=== PATIENT | male | born 2000 | race Two or more races ===

== ENCOUNTER 2022-04-18 06:03 | Emergency (ER) | payer OTHER ==
[~2022-04-18] VITALS: Ht 172.7 cm; Wt 72.6 kg
--- NOTE | 2022-04-18 08:38 | NUR ---
Patient discharged to home in stable condition. Written and verbal after care instructions given to [employer] -verbalizes understanding of instruction.
[2022-04-18 08:39] VITALS: BP 135/80
== END 2022-04-18 09:01 | disposition home or self-care (01) ==
LOC: ER 06:18
DX: S00.83XA Contusion of other part of head, initial encounter (principal); Z60.2 Problems related to living alone; Y08.89XA Assault by other specified means, initial encounter; Y93.89 Activity, other specified; Y92.89 Other specified places as the place of occurrence of the external cause; Y99.8 Other external cause status
CPT/HCPCS: 70450-TC; 71045-TC; 72125-TC